=== PATIENT | male | born 1985 | race Hispanic/Latino ===

== ENCOUNTER 2017-01-02 07:52 | Emergency (ER) | payer OTHER ==
[~2017-01-02] VITALS: Ht 185.4 cm; Wt 113.4 kg
[2017-01-02 07:55] VITALS: BP 140/74
--- NOTE | 2017-01-02 08:09 | ED NECK/BACK PAIN COMPLAINT ---
History of Present Illness General Chief Complaint: Low Back Pain/Injury Stated Complaint: WORK RELATED INJURY LOW BACK PAIN Source: patient Exam Limitations: no limitations Vital Signs & Intake/Output Vital Signs & Intake/Output Vital Signs Date Time Temp Pulse Resp B/P B/P Pulse O2 O2 Flow FiO2 Mean Ox Delivery Rate 01/02 0755 98.3 101 20 140/74 96 Room Air Allergies Coded Allergies: No Known Allergies (01/02/17) Reconcile Medications Meloxicam (Mobic) 15 MG TABLET 1 TAB PO DAILY PRN pain Methocarbamol (Robaxin) 500 MG TABLET 1 TAB PO TID PRN msucle spasms Triage Note: PT TO ED C/O LOWER BACK PAIN X 1 WEEK. C/O LOW BACK "FEELING TIGHT". HAS TAKEN OTC MEDS WITH NO RELIEF. STATES IT IS WORK RELATED. Triage Nurses Notes Reviewed? yes Onset: Gradual Duration: week(s): (1) Timing: remote history Quality/Severity: moderate Location: lumbar spine, paraspinous muscles Radiation: none Context: driving, lifting Method of Injury: lifting Loss of Consciousness: no loss of consciousness HPI: Patient is a 31-year-old male with no known past medical history presenting to the emergency department with chief complaint of low back pain that started about one week ago progressively getting worse. Patient reports that it started initially with heavy lifting at work and got worse over the past couple days after he hit a pothole. Has been taking Advil [id number] without relief. Denies any radiation of the pain. Movement and bending make the pain worse. Nothing seems to be helping the pain. Denies any urinary incontinence or retention. No abdominal pain. No chest pain palpitations or shortness of breath. Denies history of back surgeries. Denies any lower extremity weakness. No numbness or tingling. (MYRTLE ALVES) Past History Travel History Traveled to [place] past 21 day No Medical History Any Pertinent Medical History? see below for history Surgical History Surgical History: non-contributory Psychosocial History What is your primary language Mongolian Tobacco Use: Current Daily Use Daily Tobacco Use Amount/Type: => 5 Cigarettes daily ETOH Use: occasional use Illicit Drug Use: denies illicit drug use Family History Hx Contributory? No (MYRTLE ALVES) Review of Systems Review of Systems Constitutional: Reports: no symptoms. Comments Review of systems: See HPI, All other systems negative. Constitutional, no chills fever or weight loss HEENT: No visual changes no sore throat no congestion Cardiovascular: No chest pain ,palpitation , orthopnea or ankle swelling Skin, no jaundice no rashes Respiratory: No dyspnea cough sputum or hemoptysis GI: No nausea no vomiting : No dysuria No hematuria Muscle skeletal: no neck pain, Neurologic: No numbness no confusion Psych: No stress anxiety or depression,. Heme/endocrine: No bruising no bleeding no polyuria or polydipsia Immunology: No splenectomy or history of AIDS (MYRTLE ALVES) Physical Exam Physical Exam General Appearance: well developed/nourished, no apparent distress, alert, awake , comfortable Neck: normal inspection, supple, full range of motion Comments: Well-developed well-nourished person in no acute distress HEENT: Pupils equally round and reactive to light and accommodation. Nose is atraumatic. Neck: Supple, no lymphadenopathy, normal range of motion without pain or tenderness Back: Tender to palpation in the lumbar paraspinal muscle region bilaterally. No bony tenderness to palpation over the lumbar, thoracic or cervical spine. Limited range of motion with forward flexion secondary to pain. Pain at approximately 50 afford flexion. No pain with neck extension. No difficulty with lateral flexion. Cardiovascular: normal JVP Respiratory: No respiratory distress. Abdomen: Soft, nontender nondistended, no appreciable organomegaly. No ascites Extremity: No edema, no calf tenderness to palpation, normal and equal pulses. Full range of motion of upper and [place] and is without difficulty or pain. Muscular strength is 5 out of 5 in upper and lower extremities. Neuro: Alert oriented x3, motor sensory normal, patellar reflexes are 2+ bilaterally. Skin: No appreciable rash on exposed skin, skin is warm and dry. Psych: Mood and affect is normal, memory and judgment is normal. (MYRTLE ALVES) Progress Differential Diagnosis: cauda equina syn, herniated disc, myofascial strain, pyelo/UTI, sciatica, thoracic outlet syn, ureterolithiasis Plan of Care: Current Medications Sig/Reba Start time Last Medication Dose Stop Time Status Admin Ketorolac 30 MG ONE ONE 01/03 0830 UNVr Tromethamine 01/03 0831 (Toradol) Comments: Neurologically intact. No direct injury. No bony tenderness. No indication for imaging at this time. Patient needs orthopedic follow-up, physical therapy follow-up, if symptoms persist patient may need MRI. (MYRTLE ALVES) Departure Departure Time of Disposition: 816 Disposition: HOME OR SELF CARE Condition: Stable Clinical Impression Primary Impression: Back strain Qualifiers: Encounter type: initial encounter Qualified Code: S39.012A - Strain of muscle, fascia and tendon of lower back, initial encounter Referrals: PATSY CLARK,ERASTO Colby Additional Instructions: Take meloxicam as prescribed to help with inflammation and pain. For muscle spasms take Robaxin. Apply heat and ice, alternated the two. If symptoms persist follow-up with orthopedics. He may need physical therapy. return for worsening symptoms or concerns. Departure Forms: Customer [employer] Employee [employer] General Discharge Information Prescriptions: Current Visit Scripts Meloxicam (Mobic) 1 TAB PO DAILY PRN pain #30 TAB Methocarbamol (Robaxin) 1 TAB PO TID PRN msucle spasms #15 TAB (MYRTLE ALVES) PA/[employer] Co-Sign Statement Statement: ED Attending supervision documentation- [] I saw and evaluated the patient. I have also reviewed all the pertinent lab results and diagnostic results. I agree with the findings and the plan of care as documented in the PA's/[employer] W[employer]ER's documentation. [X] I have reviewed the ED Record and agree with the PA's/[employer] W[employer]'s documentation. [] Additions or exceptions (if any) to the PAs/[employer] WINDER's note and plan are summarized below: [] (DINA JONES DO
[2017-01-02] MEDS ORDERED: MOBIC15 M1 PO (08:19)
[2017-01-02] MEDS ORDERED: ROBAXIN500 M1 PO (08:19)
== END 2017-01-02 08:34 ==
LOC: ERH 07:52
DX: S39.012A Strain of muscle, fascia and tendon of lower back, initial encounter (principal); X50.0XXA Overexertion from strenuous movement or load, initial encounter; Y93.89 Activity, other specified; Y92.9 Unspecified place or not applicable
CPT/HCPCS: 96372; J1885